=== PATIENT | male | born 1935 | race Caucasian/White ===

== ENCOUNTER 2017-10-04 09:47 | Emergency (ER) | payer MEDICARE ==
[2017-10-04] MEDS ORDERED: PREDNISONE 20 MG TABLET ONE (10:43)
== END 2017-10-04 10:55 | disposition home or self-care (01) ==
LOC: EDH 09:47
DX: M16.12 Unilateral primary osteoarthritis, left hip (principal); I10 Essential (primary) hypertension; E78.5 Hyperlipidemia, unspecified; Z87.891 Personal history of nicotine dependence
CPT/HCPCS: 73502

== ENCOUNTER 2019-12-06 11:56 | Emergency (ER) | payer MEDICARE ==
[2019-12-06] MEDS ORDERED: ORPHENADRINE CITRATE 30 MG/ML ML ONE (12:31)
== END 2019-12-06 13:19 | disposition home or self-care (01) ==
LOC: EDH 11:56
DX: M54.32 Sciatica, left side (principal); M25.552 Pain in left hip; E78.5 Hyperlipidemia, unspecified; I10 Essential (primary) hypertension
CPT/HCPCS: 96372; 99283; J2360

== ENCOUNTER 2020-03-04 01:32 | Observation (INO) | payer MEDICARE ==
[~2020-03-04] VITALS: Ht 160 cm; Wt 72.5 kg
[2020-03-04 02:01] LABS: BASOPHILS % (AUTO) 0.8 % (0.0-5.0); EOSINOPHILS % (AUTO) 6.9 % (0.0-8.0); HEMATOCRIT 42.4 % (42-54); LYMPHOCYTES % (AUTO) 35.8 % (21.0-51.0); MEAN CORPUSCULAR HEMOGLOBIN 31.1 pg (27.0-33.0); MEAN CORPUSCULAR HGB CONC 33.5 g/dL (32.0-36.0); MONOCYTES % (AUTO) 13.7 % (3.0-13.0); NEUTROPHILS % (AUTO) 42.6 % (40.0-77.0); PLATELET COUNT (AUTO) 186 K/uL (130-400); RED BLOOD CELL COUNT(AUTO) 4.56 MIL/uL (4.50-6.20); RED CELL DISTRIBUTION WIDTH 15.5 % (11.0-15.5); WHITE BLOOD COUNT (AUTO) 5.2 K/uL (4.8-10.8)
[2020-03-04] MEDS ORDERED: PANTOPRAZOLE 40 MG/VIAL ONE ×2 (02:06→09:58)
[2020-03-04] MEDS ORDERED: FAMOTIDINE/PF 20 MG/2 ML VIAL IV ONE (02:07)
[2020-03-04 02:12] LABS: CREATININE 0.9 mg/dL (0.5-1.5); POTASSIUM 3.7 mmol/L (3.5-5.1)
[2020-03-04 02:15] LABS: INR 0.9 (0.85-1.15); PARTIAL THROMBOPLASTIN TIME 25.2 SEC (26.3-35.5); PROTHROMBIN TIME 9.8 SEC (9.6-11.6)
[2020-03-04 02:16] LABS: ALBUMIN 3.5 g/dL (3.5-5.0); BILIRUBIN,TOTAL 0.2 mg/dL (0.2-1.0); TOTAL PROTEIN, SERUM 7.2 g/dL (6.0-8.3)
[2020-03-04] MEDS ORDERED: IOHEXOL-350 75 ML VIAL IV ONE (02:52)
[2020-03-04] MEDS: SODIUM CHLORIDE 0.9% 1000ML 1,000 ML IV SCH ×2 (03:39→18:18)
[2020-03-04] MEDS ORDERED: ACETAMINOPHEN 325 MG TAB PO PRN ×2 (03:45)
[2020-03-04] MEDS ORDERED: ONDANSETRON HCL 4 MG/2 ML VIAL IV PRN (03:45)
[2020-03-04 08:00] LABS: APPEARANCE,URINE Clear (CLEAR); BILIRUBIN,URINE Negative (NEGATIVE); COLOR,URINE Yellow (YELLOW); GLUCOSE, URINE (UA) Negative (NEGATIVE); KETONES,URINE Negative (NEGATIVE); LEUKOCYTE ESTERASE ,URINE Negative (NEGATIVE); NITRATE,URINE Negative (NEGATIVE); OCCULT BLOOD,URINE Negative (NEGATIVE); PROTEIN,URINE Negative (NEGATIVE); UROBILINOGEN,URINE 0.2 mg/dL (0.2-1.0)
[2020-03-04] MEDS ORDERED: FAMOTIDINE/PF 20 MG/2 ML VIAL IV SCH (09:00)
[2020-03-04] MEDS: PANTOPRAZOLE 40 MG/VIAL IVP SCH ×2 (09:59→20:59)
[2020-03-04 10:25] LABS: EOSINOPHILS % (AUTO) 6.6 % (0.0-8.0); HEMATOCRIT 39.4 % (42-54); LYMPHOCYTES % (AUTO) 28.7 % (21.0-51.0); MEAN CORPUSCULAR HEMOGLOBIN 30.8 pg (27.0-33.0); MEAN CORPUSCULAR HGB CONC 32.5 g/dL (32.0-36.0); MEAN CORPUSCULAR VOLUME 94.7 fL (79-99); NEUTROPHILS % (AUTO) 51.5 % (40.0-77.0); PLATELET COUNT (AUTO) 166 K/uL (130-400); RED BLOOD CELL COUNT(AUTO) 4.16 MIL/uL (4.50-6.20); RED CELL DISTRIBUTION WIDTH 15.7 % (11.0-15.5); WHITE BLOOD COUNT (AUTO) 4.1 K/uL (4.8-10.8)
[2020-03-04 16:25] VITALS: BP 160/66
--- NOTE | 2020-03-04 16:35 | NUR ---
RADHA NOTE/IA UNABLE TO MEET WITH PATIENT, NEXT OF KIN CALLED, FELIPA TURCIOS. PER DAUGHTER, PATIENT LIVES ALONE, IS INDEPENDENT WITH ADLS, NO USE OF PROVIDER SERVICES, HAS CANE, AND FEELS SAFE FOR PATIENT TO RETURN HOME WITH FRIEND, JOYCELYN FORDS. Addendum: 03/04/20 at 1636 by KATHERIN MONGE RN CM Amended: Links added.
[2020-03-04] MEDS ORDERED: HYDRALAZINE HCL 20 MG/ML VIAL IV PRN (16:45)
--- NOTE | 2020-03-04 17:30 | NUR ---
MD CONSULT SPOKE TO DR. CORBIN REGARDING PATIENT WITH ACTIVE GI BLEED. PER DR. CORBIN, PATIENT'S HEMOGLOBIN IS STABLE AT 13.7 AND DOES NOT NEED TO BE IN THE HOSPITAL. PATIENT NEEDS TO BE DISCHARGE RIGHT AWAY. DR. CORBIN STATED, " PATIENT WILL JUST CONTRACT COVID BY BEING IN THE HOSPITAL". PATIENT TO FOLLOW UP WITH HIM ON SATURDAY OR SATURDAY. DR. GUPTA NOTIFIED OF DR. CORBIN'S RESPONSE. PER DR. GUPTA, CONTINUE TO MONITOR PATIENT'S HEMOGLOBIN AND MY CONSIDER DISCHARGE TOMORROW.
--- NOTE | 2020-03-04 17:40 | NUR ---
NOTIFIED PATIENT REGARDING DR. CORBIN'S NOT PERFORMING ANY INTERVENTIONS AT THIS TIME AND WANTS PATIENT TO FOLLOW UP WITH HIM ON SATURDAY. PATIENT'S CONCERNED ABOUT STILL HAVING SMALL BLOODY STOOLS. PATIENT STATED, " I'M BLEEDING OUT AND YOU ALL ARE NOT DOING ANYTHING ABOUT IT". I REASSURED THE PATIENT THAT DR. GUPTA WOULD BE MONITORING HIS HEMOGLOBIN LEVELS CLOSELY AND HE WILL BE RECEIVING PROTONIX IV TWICE A DAY TO HELP WITH THE GI BLEED. PATIENT STATED WILL WAIT AND SEE WHAT HAPPENS TOMORROW.
[2020-03-04 19:40] VITALS: BP 154/62
[2020-03-04] MEDS ORDERED: AMLO10TA7 PO (19:42)
[2020-03-04] MEDS ORDERED: ASPI-1197 PO (19:42)
[2020-03-04] MEDS ORDERED: L.AC1CAP6 PO (19:42)
[2020-03-04] MEDS ORDERED: OLME1TAB82 PO (19:42)
--- NOTE | 2020-03-04 20:00 | NUR ---
assessment note awake, alert, ox3, sitting bedside chair, no sob, no c/o pain , at this time, ivf infusing well at this time, teach patient plan of care and expected outcome, patient verbalizes understanding via teach back
[2020-03-04 23:37] VITALS: BP 145/65
[2020-03-05 03:35] VITALS: BP 158/70
[2020-03-05 06:11] LABS: MEAN CORPUSCULAR HGB CONC 32.6 g/dL (32.0-36.0); MEAN CORPUSCULAR VOLUME 95.1 fL (79-99); RED BLOOD CELL COUNT(AUTO) 4.1 MIL/uL (4.50-6.20); RED CELL DISTRIBUTION WIDTH 15.4 % (11.0-15.5); WHITE BLOOD COUNT (AUTO) 4.5 K/uL (4.8-10.8)
[2020-03-05 06:34] LABS: CREATININE 0.9 mg/dL (0.5-1.5)
[2020-03-05] MEDS ORDERED: DEXTROSE 5%-WATER 1,000 ML IV SCH (07:00)
--- NOTE | 2020-03-05 07:45 | NUR ---
PATIENT VOICED IS VERY UPSET DUE TO NOTHING'S BEING DONE SINCE HE'S ARRIVED AT THE HOSPITAL. STATED, " I'M STILL HAVING BLOODY STOOLS AND NO DOCTOR HAS COME TO SEE ME OR DO ANYTHING ABOUT IT. " I NEED SOMEONE HIGH IN RANK TO COME AND TALK TO ME". PATIENT STATED, "I WANT DR. CORBIN'S TO COME SEE ME IN THE HOSPITAL AND DO SOMETHING ABOUT MY PROBLEM". I WILL NOT LEAVE THIS PLACE UNTIL THE BLEEDING HAS CLEARED UP.
--- NOTE | 2020-03-05 07:50 | NUR ---
SPOKE TO VENKAT MENDOZA (CHARGE NURSE) REGARDING PATIENT'S CONCERNS, STATED WILL NOTIFY TAPE RECORDING MACHINE OPERATOR.
[2020-03-05 08:08] VITALS: BP 178/75
--- NOTE | 2020-03-05 08:54 | NUR ---
RECEIVED CALL FROM DR. CORBIN, STATED PATIENT HAS NORMAL HEMOGLOBIN 12.7 THIS MORNING. STATED, " I TOLD YOU TO DISCHARGE THE PATIENT YESTERDAY AND HE WILL FOLLOW UP IN MY OFFICE ON SATURDAY". " ALL YOU ALL ARE DOING IS GOING TO CAUSE THIS PATIENT TO CONTRACT COVID, THIS PATIENT HAS NO REASON FOR BEING IN THE HOSPITAL.". " YOU SHOULD HAVE NEVER ADMITTED THIS PATIENT. " "SCOPING THE PATIENT WILL NOT STOP THE BLEEDING ANYWAY." " I WANT TO SPEAK TO THE PATIENT RIGHT NOW." THE TELEPHONE WAS TAKEN TO THE PATIENT BY VENKAT DYE (GI LAB) NURSE. CHARGE NURSE VENKAT MENDOZA PRESENT AT THIS TIME.
[2020-03-05] MEDS ORDERED: ASPIRIN 81MG TAB.CHEW PO SCH (09:00)
[2020-03-05] MEDS: L.acidoph & Paracasei,B.lactis (Probiotic) 1 EACH PO SCH (09:00)
[2020-03-05] MEDS: PANTOPRAZOLE 40 MG/VIAL IVP SCH ×2 (09:56→21:41)
[2020-03-05] MEDS: AMLODIPINE BESYLATE 5 MG TAB PO SCH (09:56)
[2020-03-05 11:51] VITALS: BP 136/63
[2020-03-05 16:35] VITALS: BP 159/79
[2020-03-05] MEDS ORDERED: PEG 3350/NA SULF,BICARB,CL/KCL 4000 ML SOLN PO SCH (17:00)
[2020-03-05 19:25] VITALS: BP 180/69
[2020-03-05 23:38] VITALS: BP 172/76
[2020-03-06] VITALS (15 sets, daily range): BP systolic 98–157; BP diastolic 49–75
[2020-03-06 05:20] LABS: EOSINOPHILS % (AUTO) 6.4 % (0.0-8.0); HEMATOCRIT 43.2 % (42-54); MEAN CORPUSCULAR HEMOGLOBIN 30.8 pg (27.0-33.0); MEAN CORPUSCULAR HGB CONC 32.9 g/dL (32.0-36.0); MEAN CORPUSCULAR VOLUME 93.7 fL (79-99); NEUTROPHILS % (AUTO) 50.4 % (40.0-77.0); PLATELET COUNT (AUTO) 194 K/uL (130-400); RED BLOOD CELL COUNT(AUTO) 4.61 MIL/uL (4.50-6.20); RED CELL DISTRIBUTION WIDTH 15.3 % (11.0-15.5); WHITE BLOOD COUNT (AUTO) 4.8 K/uL (4.8-10.8)
[2020-03-06 05:37] LABS: CREATININE 0.9 mg/dL (0.5-1.5); POTASSIUM 3.3 mmol/L (3.5-5.1)
[2020-03-06] MEDS ORDERED: POTASSIUM CHLORIDE 10MEQ/100ML 100 ML IV PRN (06:45)
[2020-03-06] MEDS ORDERED: LIDOCAINE HCL-MPF 1% 2ML VIAL IV PRN (06:45)
[2020-03-06] MEDS ORDERED: PROPOFOL 10 MG/ML 20ML VIAL IV ONE (06:50)
[2020-03-06] MEDS ORDERED: LIDOCAINE HCL 1% 20 ML VIAL ONE (06:50)
[2020-03-06] MEDS ORDERED: HYDR25SU38 RC (08:18)
[2020-03-06] MEDS: AMLODIPINE BESYLATE 5 MG TAB PO SCH (08:25)
[2020-03-06] MEDS: L.acidoph & Paracasei,B.lactis (Probiotic) 1 EACH PO SCH (09:00)
[2020-03-06] MEDS: PANTOPRAZOLE 40 MG/VIAL IVP SCH (09:00)
--- NOTE | 2020-03-06 11:30 | NUR ---
DISCHARGE PATIENT GIVEN DISCHARGE INSTRUCTIONS VIA TEACH BACK. 18G PIV TO LFA DISCONTINUE, TIP INTACT. E-RX SENT TO [facility] IN [place] FOR ANUSOL SUPP DAILY X 2 WEEKS. PATIENT TO FOLLOW UP WITH DR. GRAYSON AND DR. CORBIN IN 1 WEEK. PATIENT STABLE AT THIS TIME, NO CURRENT BLOODY STOOLS. PATIENT WHEELED TO [facility] FOR DISCHARGE BY AYUSH REDDY.
== END 2020-03-06 13:30 | disposition home or self-care (01) ==
LOC: EDH 01:32 → EDHIP 03:39 → 3BH 15:02
PROVIDERS: ADMIT Internal Medicine; ATTEND Internal Medicine
DX: U07.1 COVID-19 (principal); K92.1 Melena; E87.0 Hyperosmolality and hypernatremia; B96.89 Other specified bacterial agents as the cause of diseases classified elsewhere; K64.1 Second degree hemorrhoids; K57.30 Diverticulosis of large intestine without perforation or abscess without bleeding; I10 Essential (primary) hypertension; E78.5 Hyperlipidemia, unspecified
CPT/HCPCS: 36415 ×3; 45378; 71045; 74177; 80048 ×2; 80053; 81003; 82270; 83605; 83690; 84484; 85014; 85018; 85025 ×3; 85027; 85610; 85730; 86850; 86900; 86901; 87426; 93005; 96361 ×2; 96374; 96376; 99285; A4222; A4223; A4620; A4657; C9113 ×6; G0378 ×22; J2704; J3490; J7030; J7070; Q9967; U0003

== ENCOUNTER → 2020-04-14 | Outpatient (CLI) | payer MEDICARE ==
[~2020-04-14] MED LIST: AMLO10TA7 PO; ASPI-1197 PO; HYDR25SU38 RC; L.AC1CAP6 PO; OLME1TAB82 PO
== END | disposition home or self-care (01) ==
LOC: RAH 07:59
PROVIDERS: ATTEND Family Medicine Sports Medicine
DX: M51.27 Other intervertebral disc displacement, lumbosacral region (principal); M16.12 Unilateral primary osteoarthritis, left hip; M47.817 Spondylosis without myelopathy or radiculopathy, lumbosacral region; M48.061 Spinal stenosis, lumbar region without neurogenic claudication
CPT/HCPCS: 72148; 73721

== ENCOUNTER 2022-01-13 16:24 | Emergency (ER) | payer MEDICARE ==
[~2022-01-13] VITALS: Ht 180.3 cm; Wt 74.8 kg
[~2022-01-13 16:24] MED LIST changes: +AMLO-258 PO; -AMLO10TA7 PO; +OLME-7 PO; -OLME1TAB82 PO
[2022-01-13 17:20] VITALS: BP 115/58
[2022-01-13] MEDS ORDERED: 0.9%NACL 1000ML 1,000 ML IV ONE (17:30)
[2022-01-13 17:49] LABS: BASOPHILS % (AUTO) 0.3 % (0.0-5.0); HEMATOCRIT 45.9 % (42-54); MEAN CORPUSCULAR HEMOGLOBIN 30.3 pg (27.0-33.0); MEAN CORPUSCULAR HGB CONC 32.9 g/dL (32.0-36.0); MEAN CORPUSCULAR VOLUME 92.2 fL (79-99); MONOCYTES % (AUTO) 6.2 % (3.0-13.0); NEUTROPHILS % (AUTO) 75.3 % (40.0-77.0); PLATELET COUNT (AUTO) 186 K/uL (130-400); RED BLOOD CELL COUNT(AUTO) 4.98 MIL/uL (4.50-6.20); RED CELL DISTRIBUTION WIDTH 14.2 % (11.0-15.5)
[2022-01-13 17:51] LABS: APPEARANCE,URINE CLEAR (CLEAR); BILIRUBIN,URINE NEGATIVE (NEGATIVE); COLOR,URINE YELLOW (YELLOW); GLUCOSE, URINE (UA) NEGATIVE (NEGATIVE); KETONES,URINE 15 mg/dL (NEGATIVE); LEUKOCYTE ESTERASE ,URINE NEGATIVE (NEGATIVE); NITRATE,URINE NEGATIVE (NEGATIVE); OCCULT BLOOD,URINE NEGATIVE (NEGATIVE); PROTEIN,URINE NEGATIVE (NEGATIVE); UROBILINOGEN,URINE 0.2 mg/dL (0.2-1.0)
[2022-01-13 18:00] LABS: CREATININE 1.4 mg/dL (0.5-1.5); POTASSIUM 4.2 mmol/L (3.5-5.1)
[2022-01-13] MEDS ORDERED: MECLIZINE HCL 25 MG TABLET PO ONE (18:00)
[2022-01-13 18:05] LABS: ALBUMIN 3.5 g/dL (3.5-5.0); BILIRUBIN,TOTAL 0.4 mg/dL (0.2-1.0); TOTAL PROTEIN, SERUM 7.5 g/dL (6.0-8.3)
[2022-01-13] MEDS ORDERED: MECL-226 PO (18:48)
== END 2022-01-13 18:57 | disposition home or self-care (01) ==
LOC: EDH 16:24
DX: U07.1 COVID-19 (principal); R42 Dizziness and giddiness; R11.0 Nausea
CPT/HCPCS: 99285; 96360; 71045; 87635; 84484; 80053; 85025; 81003; 36415; 93005; C9803; J7030

== ENCOUNTER 2022-01-15 18:42 | Inpatient (IN) | payer MEDICARE ==
[2020-01-24] MEDS: ZOSYN 3.375GM +NS 50ML IV SCH (17:29)
[~2022-01-15] VITALS: Ht 180.3 cm; Wt 73.6 kg
[~2022-01-15 18:42] MED LIST changes: +MECL-226 PO
[2022-01-15 19:14] LABS: BASOPHILS % (AUTO) 0.1 % (0.0-5.0); EOSINOPHILS % (AUTO) 0.1 % (0.0-8.0); HEMATOCRIT 48.9 % (42-54); MEAN CORPUSCULAR HEMOGLOBIN 30.7 pg (27.0-33.0); MEAN CORPUSCULAR HGB CONC 33.7 g/dL (32.0-36.0); MEAN CORPUSCULAR VOLUME 91.1 fL (79-99); MONOCYTES % (AUTO) 3.9 % (3.0-13.0); NEUTROPHILS % (AUTO) 89.6 % (40.0-77.0); PLATELET COUNT (AUTO) 211 K/uL (130-400); RED BLOOD CELL COUNT(AUTO) 5.37 MIL/uL (4.50-6.20); RED CELL DISTRIBUTION WIDTH 14.1 % (11.0-15.5); WHITE BLOOD COUNT (AUTO) 13.4 K/uL (4.8-10.8)
[2022-01-15 19:33] LABS: ALBUMIN 3.8 g/dL (3.5-5.0); TOTAL PROTEIN, SERUM 7.8 g/dL (6.0-8.3)
[2022-01-15] MEDS ORDERED: IOHEXOL 350 MG/ML 100ML INFUS..BTL IV ONE (19:35)
[2022-01-15] MEDS ORDERED: ONDANSETRON 4MG INJ ONE (19:50)
[2022-01-15] MEDS ORDERED: ONDANSETRON 4MG INJ IVP ONE (20:00)
[2022-01-15] MEDS ORDERED: DiphenhydrAMINE HCL 50 MG/ML VIAL IV PRN (21:30)
[2022-01-15] MEDS ORDERED: ONDANSETRON 4MG INJ IV PRN (21:30)
[2022-01-15] MEDS ORDERED: ACETAMINOPHEN 325 MG TAB PO PRN ×2 (21:30)
[2022-01-15] MEDS ORDERED: ACETAMINOPHEN WITH CODEINE 1 TAB TAB PO PRN (21:30)
[2022-01-15] MEDS: MORPHINE 2 MG SYG IV PRN (21:45)
[2022-01-15] MEDS ORDERED: MORPHINE 2 MG SYG ONE (21:45)
[2022-01-15] MEDS: LACTATED RINGERS 1000ML 1,000 ML IV SCH (22:09)
[2022-01-15] MEDS: ZOSYN 3.375GM +NS 50ML IV SCH (22:09)
[2022-01-15] MEDS ORDERED: GLUC100019 PO (23:52)
[2022-01-15] MEDS ORDERED: FLAX100020 PO (23:52)
[2022-01-16] MEDS: MORPHINE 2 MG SYG IV PRN ×2 (00:44→04:59)
[2022-01-16] MEDS ORDERED: LORAZEPAM 2 MG/ML 1 ML VIAL IM PRN (01:00)
[2022-01-16] MEDS ORDERED: THIAMINE HCL 100 MG/ML 2ML VIAL ONE (02:01)
[2022-01-16] MEDS ORDERED: FOLIC ACID 5 MG/ML VIAL ONE (02:03)
[2022-01-16] MEDS: M.V.I. IV [ADULT] 10 ML, FOLIC ACID 1 MG, THIAMINE HCL 100 MG in 0.9%NACL 1000ML 1,000 ML IV SCH (02:34)
[2022-01-16 02:50] VITALS: BP 157/97
[2022-01-16] MEDS: ZOSYN 3.375GM +NS 50ML IV SCH ×3 (04:59→21:51)
[2022-01-16] MEDS ORDERED: OMEG-109 PO (05:16)
[2022-01-16] MEDS ORDERED: [UNRECOGNIZED DRUG - OTHER] PO (05:16)
[2022-01-16] MEDS ORDERED: cognitex PO (05:16)
[2022-01-16] MEDS ORDERED: [UNRECOGNIZED DRUG - OTHER] PO (05:16)
[2022-01-16] MEDS ORDERED: RESV50CA PO (05:16)
[2022-01-16] MEDS ORDERED: [UNRECOGNIZED DRUG - OTHER] PO (05:16)
[2022-01-16] MEDS ORDERED: CHOL125C7 PO (05:16)
[2022-01-16] MEDS ORDERED: PRED5TAB PO (05:16)
[2022-01-16] MEDS ORDERED: TURM1POW MC (05:16)
[2022-01-16 06:11] LABS: BASOPHILS % (AUTO) 0.1 % (0.0-5.0); HEMATOCRIT 55.4 % (42-54); LYMPHOCYTES % (AUTO) 5.1 % (21.0-51.0); MEAN CORPUSCULAR HEMOGLOBIN 30.6 pg (27.0-33.0); MEAN CORPUSCULAR HGB CONC 33.6 g/dL (32.0-36.0); MEAN CORPUSCULAR VOLUME 91.3 fL (79-99); MONOCYTES % (AUTO) 6.9 % (3.0-13.0); NEUTROPHILS % (AUTO) 87.4 % (40.0-77.0); PLATELET COUNT (AUTO) 240 K/uL (130-400); RED BLOOD CELL COUNT(AUTO) 6.07 MIL/uL (4.50-6.20); RED CELL DISTRIBUTION WIDTH 14.7 % (11.0-15.5); WHITE BLOOD COUNT (AUTO) 12.6 K/uL (4.8-10.8)
[2022-01-16 06:23] LABS: CREATININE 1.7 mg/dL (0.5-1.5); POTASSIUM 4.4 mmol/L (3.5-5.1)
[2022-01-16 08:00] VITALS: BP 122/72
[2022-01-16] MEDS: FAMOTIDINE 20MG VIAL IV SCH ×2 (08:19→21:50)
[2022-01-16] MEDS: AMLODIPINE 5 MG TAB PO SCH (09:00)
[2022-01-16] MEDS: METOPROLOL TARTRATE 25 MG TAB PO SCH ×2 (09:00→21:51)
[2022-01-16] MEDS: MECLIZINE HCL 12.5 MG TABLET PO SCH ×3 (09:00→21:51)
[2022-01-16] MEDS: ASPIRIN 81MG CHEW TAB PO SCH (09:00)
[2022-01-16 11:35] VITALS: BP 125/69
[2022-01-16] MEDS: LACTATED RINGERS 1000ML 1,000 ML IV SCH (11:48)
[2022-01-16 15:40] VITALS: BP 100/60
[2022-01-16 21:02] VITALS: BP 125/60
[2022-01-16 23:53] VITALS: BP 105/57
[2022-01-17] MEDS: LACTATED RINGERS 1000ML 1,000 ML IV SCH ×2 (02:06→17:22)
[2022-01-17 04:08] LABS: APPEARANCE,URINE CLEAR (CLEAR); BILIRUBIN,URINE NEGATIVE (NEGATIVE); COLOR,URINE YELLOW (YELLOW); GLUCOSE, URINE (UA) NEGATIVE (NEGATIVE); KETONES,URINE 5 mg/dL (NEGATIVE); LEUKOCYTE ESTERASE ,URINE NEGATIVE (NEGATIVE); NITRATE,URINE NEGATIVE (NEGATIVE); OCCULT BLOOD,URINE NEGATIVE (NEGATIVE); PROTEIN,URINE TRACE mg/dL (NEGATIVE); UROBILINOGEN,URINE 0.2 mg/dL (0.2-1.0)
[2022-01-17 04:53] VITALS: BP 123/81
[2022-01-17] MEDS: ZOSYN 3.375GM +NS 50ML IV SCH ×3 (05:16→20:20)
[2022-01-17 08:00] VITALS: BP 156/85
[2022-01-17] MEDS: M.V.I. IV [ADULT] 10 ML, FOLIC ACID 1 MG, THIAMINE HCL 100 MG in 0.9%NACL 1000ML 1,000 ML IV SCH ×2 (09:26→09:32)
[2022-01-17] MEDS: METOPROLOL TARTRATE 25 MG TAB PO SCH ×2 (09:27→20:20)
[2022-01-17] MEDS: ASPIRIN 81MG CHEW TAB PO SCH (09:27)
[2022-01-17] MEDS: FAMOTIDINE 20MG VIAL IV SCH ×2 (09:27→20:22)
[2022-01-17] MEDS: MECLIZINE HCL 12.5 MG TABLET PO SCH ×3 (09:28→20:20)
[2022-01-17] MEDS: AMLODIPINE 5 MG TAB PO SCH (09:28)
[2022-01-17 11:33] VITALS: BP 146/91
[2022-01-17] MEDS ORDERED: POTASSIUM CHLORIDE 10% ELIXIR 20 MEQ/15 ML UDCUP PO PRN (15:30)
[2022-01-17] MEDS ORDERED: KCL 20 MEQ ERTAB PO PRN (15:30)
[2022-01-17] MEDS ORDERED: POTASSIUM CHLORIDE 20MEQ/100ML 100 ML IV PRN (15:30)
[2022-01-17] MEDS ORDERED: LIDOCAINE HCL-MPF 1% 2ML VIAL IV PRN (15:30)
[2022-01-17 16:00] VITALS: BP 129/53
[2022-01-17 19:30] VITALS: BP 131/68
[2022-01-18] MEDS: LACTATED RINGERS 1000ML 1,000 ML IV SCH ×2 (04:39→18:25)
[2022-01-18] MEDS: ZOSYN 3.375GM +NS 50ML IV SCH ×3 (04:39→19:28)
[2022-01-18 06:13] VITALS: BP 132/86
[2022-01-18 08:00] VITALS: BP 131/68
[2022-01-18 08:06] LABS: BASOPHILS % (AUTO) 0.1 % (0.0-5.0); EOSINOPHILS % (AUTO) 0.1 % (0.0-8.0); HEMATOCRIT 41.9 % (42-54); LYMPHOCYTES % (AUTO) 3.6 % (21.0-51.0); MEAN CORPUSCULAR HEMOGLOBIN 30.8 pg (27.0-33.0); MEAN CORPUSCULAR HGB CONC 34.4 g/dL (32.0-36.0); MEAN CORPUSCULAR VOLUME 89.5 fL (79-99); MONOCYTES % (AUTO) 9.4 % (3.0-13.0); NEUTROPHILS % (AUTO) 86.4 % (40.0-77.0); PLATELET COUNT (AUTO) 203 K/uL (130-400); RED BLOOD CELL COUNT(AUTO) 4.68 MIL/uL (4.50-6.20); RED CELL DISTRIBUTION WIDTH 14.5 % (11.0-15.5); WHITE BLOOD COUNT (AUTO) 14.7 K/uL (4.8-10.8)
[2022-01-18 08:10] LABS: ALBUMIN 2.8 g/dL (3.5-5.0); CREATININE 4.8 mg/dL (0.5-1.5); MAGNESIUM 1.9 mg/dL (1.80-2.40); POTASSIUM 4.4 mmol/L (3.5-5.1); TOTAL PROTEIN, SERUM 6.5 g/dL (6.0-8.3)
[2022-01-18] MEDS: M.V.I. IV [ADULT] 10 ML, FOLIC ACID 1 MG, THIAMINE HCL 100 MG in 0.9%NACL 1000ML 1,000 ML IV SCH (09:00)
[2022-01-18] MEDS: FAMOTIDINE 20MG VIAL IV SCH ×2 (09:00→19:28)
[2022-01-18] MEDS: METOPROLOL TARTRATE 25 MG TAB PO SCH ×2 (09:01→19:28)
[2022-01-18] MEDS: ASPIRIN 81MG CHEW TAB PO SCH (09:01)
[2022-01-18] MEDS: MECLIZINE HCL 12.5 MG TABLET PO SCH ×3 (09:01→19:29)
[2022-01-18] MEDS: AMLODIPINE 5 MG TAB PO SCH (09:01)
[2022-01-18 11:23] VITALS: BP 144/79
[2022-01-18] MEDS ORDERED: TAMSULOSIN HCL 0.4 MG CAP.ER.24H PO SCH (12:00)
[2022-01-18] MEDS ORDERED: 0.9%NACL 1000ML 1,000 ML IV ONE (14:30)
[2022-01-18 14:53] LABS: BILIRUBIN,URINE Negative (NEGATIVE); COLOR,URINE Yellow (YELLOW); GLUCOSE, URINE (UA) Negative (NEGATIVE); KETONES,URINE Trace mg/dL (NEGATIVE); LEUKOCYTE ESTERASE ,URINE Negative (NEGATIVE); NITRATE,URINE Negative (NEGATIVE); OCCULT BLOOD,URINE Moderate (NEGATIVE); PROTEIN,URINE POS 2+ mg/dL (NEGATIVE); UROBILINOGEN,URINE 0.2 mg/dL (0.2-1.0)
[2022-01-18 15:01] LABS: APPEARANCE,URINE CLOUDY (CLEAR)
[2022-01-18 15:06] LABS: BACTERIA,URINE Few /HPF (None Seen); SQUAMOUS EPITHELIAL CELL,UR Few /HPF (0-2); WBC,URINE 0-1 /HPF (0-1)
[2022-01-18 15:07] LABS: AMORPHOUS SEDIMENT,UR Few /LPF (None Seen)
[2022-01-18 16:00] VITALS: BP 137/81
[2022-01-19] VITALS: BP 123/63
[2022-01-19 04:00] VITALS: BP 130/71
[2022-01-19] MEDS: ZOSYN 3.375GM +NS 50ML IV SCH ×3 (04:29→20:19)
[2022-01-19 05:06] LABS: HEMATOCRIT 38.8 % (42-54); MEAN CORPUSCULAR HEMOGLOBIN 30.3 pg (27.0-33.0); MEAN CORPUSCULAR HGB CONC 33.8 g/dL (32.0-36.0); MEAN CORPUSCULAR VOLUME 89.6 fL (79-99); RED BLOOD CELL COUNT(AUTO) 4.33 MIL/uL (4.50-6.20); RED CELL DISTRIBUTION WIDTH 14.4 % (11.0-15.5); WHITE BLOOD COUNT (AUTO) 9.4 K/uL (4.8-10.8)
[2022-01-19 05:22] LABS: ALBUMIN 2.6 g/dL (3.5-5.0); CREATININE 3.9 mg/dL (0.5-1.5); MAGNESIUM 2.1 mg/dL (1.80-2.40); POTASSIUM 3.5 mmol/L (3.5-5.1); TOTAL PROTEIN, SERUM 6.1 g/dL (6.0-8.3); URIC ACID 8.9 mg/dL (2.6-7.2)
[2022-01-19 08:43] VITALS: BP 134/75
[2022-01-19] MEDS: TAMSULOSIN HCL 0.4 MG CAP.ER.24H PO SCH (10:15)
[2022-01-19] MEDS: METOPROLOL TARTRATE 25 MG TAB PO SCH ×2 (10:15→20:19)
[2022-01-19] MEDS: FAMOTIDINE 20MG VIAL IV SCH ×2 (10:15→20:20)
[2022-01-19] MEDS: Vitamin B Complex/Vit C/Folic Acid PO SCH (10:15)
[2022-01-19] MEDS: AMLODIPINE 5 MG TAB PO SCH (10:17)
[2022-01-19] MEDS: MECLIZINE HCL 12.5 MG TABLET PO SCH ×3 (10:18→20:20)
[2022-01-19] MEDS: ASPIRIN 81MG CHEW TAB PO SCH (10:19)
[2022-01-19] MEDS: LACTATED RINGERS 1000ML 1,000 ML IV SCH (10:58)
[2022-01-19 11:30] VITALS: BP 139/83
[2022-01-19 16:06] LABS: INR 0.99 (0.85-1.15); PROTHROMBIN TIME 10.8 SEC (9.6-11.6)
[2022-01-19 16:08] LABS: PARTIAL THROMBOPLASTIN TIME 24.7 SEC (26.3-35.5)
[2022-01-19 16:32] VITALS: BP 160/98
[2022-01-19 20:00] VITALS: BP 144/86
[2022-01-19] MEDS ORDERED: M.V.I. IV [ADULT] 10 ML, MULTITRACE-4 ADULT 10ML VIAL 3 ML in CLINIMIX-E 5%AA /D15%W 2... IV ONE (20:00)
[2022-01-20] VITALS (8 sets, daily range): BP systolic 119–146; BP diastolic 54–85
[2022-01-20] MEDS: LACTATED RINGERS 1000ML 1,000 ML IV SCH ×2 (01:36→15:54)
[2022-01-20] MEDS: ZOSYN 3.375GM +NS 50ML IV SCH ×3 (04:31→22:34)
[2022-01-20 05:50] LABS: BASOPHILS % (AUTO) 0.1 % (0.0-5.0); EOSINOPHILS % (AUTO) 2.9 % (0.0-8.0); HEMATOCRIT 37.5 % (42-54); LYMPHOCYTES % (AUTO) 5.2 % (21.0-51.0); MEAN CORPUSCULAR HEMOGLOBIN 30.5 pg (27.0-33.0); MEAN CORPUSCULAR HGB CONC 33.9 g/dL (32.0-36.0); MEAN CORPUSCULAR VOLUME 90.1 fL (79-99); NEUTROPHILS % (AUTO) 81.4 % (40.0-77.0); PLATELET COUNT (AUTO) 163 K/uL (130-400); RED BLOOD CELL COUNT(AUTO) 4.16 MIL/uL (4.50-6.20); RED CELL DISTRIBUTION WIDTH 14.2 % (11.0-15.5); WHITE BLOOD COUNT (AUTO) 8.5 K/uL (4.8-10.8)
[2022-01-20 06:00] LABS: CREATININE 2.2 mg/dL (0.5-1.5); MAGNESIUM 2.3 mg/dL (1.80-2.40); PHOSPHORUS 3.6 mg/dL (2.5-4.9); POTASSIUM 3.1 mmol/L (3.5-5.1)
[2022-01-20] MEDS: METOPROLOL TARTRATE 25 MG TAB PO SCH ×2 (10:09→22:35)
[2022-01-20] MEDS: FAMOTIDINE 20MG VIAL IV SCH ×2 (10:09→22:35)
[2022-01-20] MEDS: TAMSULOSIN HCL 0.4 MG CAP.ER.24H PO SCH (10:09)
[2022-01-20] MEDS: Vitamin B Complex/Vit C/Folic Acid PO SCH (10:09)
[2022-01-20] MEDS: ASPIRIN 81MG CHEW TAB PO SCH (10:11)
[2022-01-20] MEDS: AMLODIPINE 5 MG TAB PO SCH (10:12)
[2022-01-20] MEDS: MECLIZINE HCL 12.5 MG TABLET PO SCH ×3 (10:12→22:36)
[2022-01-20] MEDS ORDERED: M.V.I. IV [ADULT] 10 ML, MULTITRACE-4 ADULT 10ML VIAL 3 ML in CLINIMIX-E 5%AA /D15%W 2... IV ONE (20:00)
[2022-01-21] VITALS: BP 130/79
[2022-01-21 04:00] VITALS: BP_SYST 130; BP_SYST 144; BP_DIAS 79; BP_DIAS 80
[2022-01-21 05:26] LABS: BASOPHILS % (AUTO) 0.1 % (0.0-5.0); EOSINOPHILS % (AUTO) 3.8 % (0.0-8.0); HEMATOCRIT 37.9 % (42-54); LYMPHOCYTES % (AUTO) 6.3 % (21.0-51.0); MEAN CORPUSCULAR HEMOGLOBIN 30.4 pg (27.0-33.0); MEAN CORPUSCULAR HGB CONC 33.2 g/dL (32.0-36.0); MEAN CORPUSCULAR VOLUME 91.3 fL (79-99); MONOCYTES % (AUTO) 11.1 % (3.0-13.0); NEUTROPHILS % (AUTO) 78.3 % (40.0-77.0); PLATELET COUNT (AUTO) 158 K/uL (130-400); RED BLOOD CELL COUNT(AUTO) 4.15 MIL/uL (4.50-6.20); RED CELL DISTRIBUTION WIDTH 14.1 % (11.0-15.5); WHITE BLOOD COUNT (AUTO) 9.7 K/uL (4.8-10.8)
[2022-01-21 06:03] LABS: ALANINE AMINOTRANSFERASE 22 U/L (12-78); ALBUMIN 2.6 g/dL (3.5-5.0); ASPARTATE AMINOTRANSFERASE 20 U/L (10-37); CARBON DIOXIDE 30 mmol/L (21-32); CHLORIDE 111 mmol/L (101-111); CREATININE 1.4 mg/dL (0.5-1.5); GLOMERULAR FILTR. RATE CALC 51 mL/min (>60); GLUCOSE,RANDOM 120 mg/dL (70-105); POTASSIUM 3.1 mmol/L (3.5-5.1); SODIUM SERUM 150 mmol/L (136-145); TOTAL PROTEIN, SERUM 6.4 g/dL (6.0-8.3); UREA NITROGEN, BLOOD 42 mg/dL (7-18)
[2022-01-21] MEDS: ZOSYN 3.375GM +NS 50ML IV SCH ×3 (06:29→21:15)
[2022-01-21 08:00] VITALS: BP 136/74
[2022-01-21] MEDS: ASPIRIN 81MG CHEW TAB PO SCH (09:59)
[2022-01-21] MEDS: MECLIZINE HCL 12.5 MG TABLET PO SCH ×3 (10:00→21:16)
[2022-01-21] MEDS: TAMSULOSIN HCL 0.4 MG CAP.ER.24H PO SCH (10:00)
[2022-01-21] MEDS: AMLODIPINE 5 MG TAB PO SCH (10:00)
[2022-01-21] MEDS: Vitamin B Complex/Vit C/Folic Acid PO SCH (10:00)
[2022-01-21] MEDS: FAMOTIDINE 20MG VIAL IV SCH ×2 (10:00→21:15)
[2022-01-21] MEDS: METOPROLOL TARTRATE 25 MG TAB PO SCH ×2 (10:00→21:15)
[2022-01-21 16:00] VITALS: BP 110/68
[2022-01-21 19:57] VITALS: BP 136/85
[2022-01-21 23:33] VITALS: BP 144/86
[2022-01-22 03:46] VITALS: BP 154/82
[2022-01-22 04:17] LABS: BASOPHILS % (AUTO) 0.1 % (0.0-5.0); EOSINOPHILS % (AUTO) 3.4 % (0.0-8.0); HEMATOCRIT 42.5 % (42-54); LYMPHOCYTES % (AUTO) 9.3 % (21.0-51.0); MEAN CORPUSCULAR HEMOGLOBIN 29.9 pg (27.0-33.0); MEAN CORPUSCULAR HGB CONC 32.7 g/dL (32.0-36.0); MEAN CORPUSCULAR VOLUME 91.4 fL (79-99); NEUTROPHILS % (AUTO) 76.8 % (40.0-77.0); PLATELET COUNT (AUTO) 189 K/uL (130-400); RED BLOOD CELL COUNT(AUTO) 4.65 MIL/uL (4.50-6.20); RED CELL DISTRIBUTION WIDTH 14.1 % (11.0-15.5); WHITE BLOOD COUNT (AUTO) 11.6 K/uL (4.8-10.8)
[2022-01-22 04:34] LABS: ALANINE AMINOTRANSFERASE 23 U/L (12-78); ALBUMIN 2.6 g/dL (3.5-5.0); ASPARTATE AMINOTRANSFERASE 19 U/L (10-37); CARBON DIOXIDE 29 mmol/L (21-32); CHLORIDE 107 mmol/L (101-111); CREATININE 1.3 mg/dL (0.5-1.5); GLOMERULAR FILTR. RATE CALC 56 mL/min (>60); GLUCOSE,RANDOM 118 mg/dL (70-105); SODIUM SERUM 147 mmol/L (136-145); TOTAL PROTEIN, SERUM 6.8 g/dL (6.0-8.3); UREA NITROGEN, BLOOD 29 mg/dL (7-18)
[2022-01-22] MEDS: ZOSYN 3.375GM +NS 50ML IV SCH ×3 (05:04→22:05)
[2022-01-22 08:00] VITALS: BP 129/72
[2022-01-22] MEDS: Vitamin B Complex/Vit C/Folic Acid PO SCH (08:55)
[2022-01-22] MEDS: ASPIRIN 81MG CHEW TAB PO SCH (08:55)
[2022-01-22] MEDS: FAMOTIDINE 20MG VIAL IV SCH ×2 (08:55→22:05)
[2022-01-22] MEDS: METOPROLOL TARTRATE 25 MG TAB PO SCH ×2 (08:55→22:05)
[2022-01-22] MEDS: AMLODIPINE 5 MG TAB PO SCH (08:55)
[2022-01-22] MEDS: TAMSULOSIN HCL 0.4 MG CAP.ER.24H PO SCH (08:55)
[2022-01-22] MEDS: MECLIZINE HCL 12.5 MG TABLET PO SCH ×3 (08:56→22:06)
[2022-01-22] MEDS: FAT EMULSIONS 20% 250ML IV SCH (08:57)
[2022-01-22 11:43] VITALS: BP 136/71
[2022-01-22 16:00] VITALS: BP 134/76
[2022-01-22 20:00] VITALS: BP 132/72
[2022-01-23] VITALS (40 sets, daily range): BP systolic 71–139; BP diastolic 40–79
[2022-01-23 04:59] LABS: BASOPHILS % (AUTO) 0.4 % (0.0-5.0); EOSINOPHILS % (AUTO) 6.4 % (0.0-8.0); HEMATOCRIT 42.2 % (42-54); LYMPHOCYTES % (AUTO) 8.3 % (21.0-51.0); MEAN CORPUSCULAR HEMOGLOBIN 30.4 pg (27.0-33.0); MEAN CORPUSCULAR HGB CONC 32.9 g/dL (32.0-36.0); MEAN CORPUSCULAR VOLUME 92.3 fL (79-99); MONOCYTES % (AUTO) 9.6 % (3.0-13.0); NEUTROPHILS % (AUTO) 74.8 % (40.0-77.0); PLATELET COUNT (AUTO) 189 K/uL (130-400); RED BLOOD CELL COUNT(AUTO) 4.57 MIL/uL (4.50-6.20); RED CELL DISTRIBUTION WIDTH 14.1 % (11.0-15.5)
[2022-01-23 05:10] LABS: CREATININE 1.3 mg/dL (0.5-1.5); POTASSIUM 3.2 mmol/L (3.5-5.1)
[2022-01-23] MEDS: ZOSYN 3.375GM +NS 50ML IV SCH ×2 (05:11→20:00)
[2022-01-23 05:22] LABS: INR 1.05 (0.85-1.15); PROTHROMBIN TIME 11.4 SEC (9.6-11.6)
[2022-01-23 05:24] LABS: PARTIAL THROMBOPLASTIN TIME 25.2 SEC (26.3-35.5)
[2022-01-23] MEDS: TAMSULOSIN HCL 0.4 MG CAP.ER.24H PO SCH (09:04)
[2022-01-23] MEDS: Vitamin B Complex/Vit C/Folic Acid PO SCH (09:04)
[2022-01-23] MEDS: FAMOTIDINE 20MG VIAL IV SCH ×2 (09:04→21:00)
[2022-01-23] MEDS: AMLODIPINE 5 MG TAB PO SCH (09:05)
[2022-01-23] MEDS: ASPIRIN 81MG CHEW TAB PO SCH (09:05)
[2022-01-23] MEDS: MECLIZINE HCL 12.5 MG TABLET PO SCH ×3 (09:05→21:00)
[2022-01-23] MEDS: METOPROLOL TARTRATE 25 MG TAB PO SCH ×2 (09:05→21:00)
[2022-01-23 13:00] LABS: CHOLESTEROL 112 mg/dL (<200); HDL CHOLESTEROL 38 mg/dL (29-71); LDL DIRECT 60 mg/dL (0-99); TRIGLYCERIDES 64 mg/dL (30-200)
[2022-01-23] MEDS ORDERED: CEFAZOLIN SODIUM 1 GM VIAL ONE (15:44)
[2022-01-23] MEDS ORDERED: SUCCINYLCHOLINE CHLORIDE 20 MG/ML 10 ML VIAL ONE (16:00)
[2022-01-23] MEDS ORDERED: ROCURONIUM 10MG/1ML SYR 10 MG/ML ML ONE ×2 (16:01→17:10)
[2022-01-23] MEDS ORDERED: ONDANSETRON 4MG INJ ONE (16:01)
[2022-01-23] MEDS ORDERED: PROPOFOL 10 MG/ML 20ML VIAL IV ONE (16:01)
[2022-01-23] MEDS ORDERED: FENTANYL CITRATE PF 50 MCG/1 ML 5ML AMP IV ONE (16:02)
[2022-01-23] MEDS ORDERED: MIDAZOLAM HCL 1 MG/ML 2ML VIAL ONE (16:03)
[2022-01-23] MEDS ORDERED: EPHEDRINE SULFATE 50 MG/ML AMPULE ONE (16:53)
[2022-01-23] MEDS ORDERED: PHENYLEPHRINE HCL 10 MG/ML 1ML VIAL IV ONE ×5 (16:56→21:59)
[2022-01-23] MEDS ORDERED: ALBUMIN (HUMAN) 5% 250 ML IV ONE ×2 (17:19→20:43)
[2022-01-23] MEDS ORDERED: ZOSYN 3.375GM+NS 50ML 50 ML ONE (17:24)
[2022-01-23 18:05] LABS: ABG HCO3 27.4 mmol/L (21.0-28.0); ABG OXYGEN SATURATION 99.6 % (95.0-99.0); ABG PCO2 37 mmHg (35-48)
[2022-01-23] MEDS ORDERED: NEOSTIGMINE 5MG/5ML SYR IV ONE (18:35)
[2022-01-23] MEDS ORDERED: GLYCOPYRROLATE 1 MG/5 ML SYRINGE ONE (18:35)
[2022-01-23] MEDS ORDERED: ROPIVACAINE 0.5% 5MG/ML 30ML IJ ONE (18:39)
[2022-01-23] MEDS ORDERED: KETOROLAC 15MG/ML VIAL (15MG/ML) ONE (20:26)
[2022-01-23 21:54] LABS: ABG HCO3 23.5 mmol/L (21.0-28.0); ABG OXYGEN SATURATION 97.1 % (95.0-99.0); ABG PCO2 39 mmHg (35-48)
[2022-01-23] MEDS ORDERED: NOREPINEPHRINE BITARTRATE 1 MG/1 ML ML IV ONE (22:15)
[2022-01-23] MEDS ORDERED: NOREPINEPHRIN 4MG/NS 250ML 250 ML IV ONE (23:18)
[2022-01-23] MEDS ORDERED: 0.9%NACL 1000ML 1,000 ML IV ONE (23:28)
[2022-01-24] VITALS (102 sets, daily range): BP systolic 59–179; BP diastolic 31–99
[2022-01-24] MEDS ORDERED: PHENYLEPHRINE HCL 10 MG in 0.9% NACL 250ML 250 ML IV PRN (01:30)
[2022-01-24] MEDS ORDERED: 0.9%NACL 1000ML 1,000 ML IV SCH (01:30)
[2022-01-24] MEDS ORDERED: METOPROLOL TARTRATE 1 MG/ML 5ML VIAL IV ONE (01:30)
[2022-01-24] MEDS ORDERED: PHENYLEPHRINE HCL 10 MG/ML 1ML VIAL IV ONE (01:59)
[2022-01-24 02:06] LABS: HEMATOCRIT 30.9 % (42-54); MEAN CORPUSCULAR HEMOGLOBIN 30.9 pg (27.0-33.0); MEAN CORPUSCULAR HGB CONC 32.4 g/dL (32.0-36.0); MEAN CORPUSCULAR VOLUME 95.4 fL (79-99); RED BLOOD CELL COUNT(AUTO) 3.24 MIL/uL (4.50-6.20); RED CELL DISTRIBUTION WIDTH 14.1 % (11.0-15.5); WHITE BLOOD COUNT (AUTO) 17.2 K/uL (4.8-10.8)
[2022-01-24 02:19] LABS: CREATININE 2.1 mg/dL (0.5-1.5); MAGNESIUM 1.6 mg/dL (1.80-2.40); PHOSPHORUS 5.4 mg/dL (2.5-4.9); POTASSIUM 3.5 mmol/L (3.5-5.1)
[2022-01-24] MEDS ORDERED: PHENYLEPHRINE HCL 10 MG/ML 5ML VIAL IV ONE (03:18)
[2022-01-24] MEDS: 1/2 NS 1000ML 1,000 ML IV SCH ×3 (03:41→14:21)
[2022-01-24] MEDS: ZOSYN 3.375GM +NS 50ML IV SCH ×3 (03:41→21:36)
[2022-01-24] MEDS: MAGNESIUM 2GM PREMIX 50ML 50 ML IV PRN (04:54)
[2022-01-24] MEDS: INSULIN HUMULIN R 100 UNIT/ML 3ML SQ SCH ×3 (06:13→16:41)
[2022-01-24] MEDS: NOREPINEPHRIN 4MG/NS 250ML 250 ML IV SCH ×2 (07:21→18:20)
[2022-01-24] MEDS: METOPROLOL TARTRATE 1 MG/ML 5ML VIAL IV SCH ×3 (08:00→19:52)
[2022-01-24 08:09] LABS: HEMATOCRIT 29.7 % (42-54)
[2022-01-24] MEDS: PHENYLEPHRINE HCL 50 MG in 0.9% NACL 250ML 250 ML IV PRN ×2 (08:33→11:15)
[2022-01-24] MEDS: ASPIRIN 81MG CHEW TAB PO SCH (09:00)
[2022-01-24] MEDS: Vitamin B Complex/Vit C/Folic Acid PO SCH (09:00)
[2022-01-24] MEDS: TAMSULOSIN HCL 0.4 MG CAP.ER.24H PO SCH (09:00)
[2022-01-24] MEDS: MECLIZINE HCL 12.5 MG TABLET PO SCH ×3 (09:00→21:36)
[2022-01-24] MEDS: AMLODIPINE 5 MG TAB PO SCH (09:00)
[2022-01-24] MEDS: FAT EMULSIONS 20% 250ML IV SCH (09:22)
[2022-01-24] MEDS ORDERED: ALBUMIN (HUMAN) 5% 250 ML IV SCH (09:30)
[2022-01-24] MEDS ORDERED: KETOROLAC 15MG/ML VIAL (15MG/ML) IV PRN (09:30)
[2022-01-24] MEDS ORDERED: M.V.I. IV [ADULT] 10 ML, MULTITRACE-4 ADULT 10ML VIAL 3 ML in CLINIMIX-E 5%AA /D15%W 2... IV SCH (10:00)
[2022-01-24] MEDS ORDERED: 0.9%NACL 1000ML 1,000 ML IV ONE ×2 (10:30→15:51)
[2022-01-24] MEDS: FAMOTIDINE 20MG VIAL IV SCH ×2 (10:34→21:36)
[2022-01-24] MEDS: METOPROLOL TARTRATE 25 MG TAB PO SCH ×2 (11:17→21:36)
[2022-01-24 15:27] LABS: HEMATOCRIT 19.3 % (42-54)
[2022-01-25] VITALS (26 sets, daily range): BP systolic 94–154; BP diastolic 46–72
[2022-01-25] MEDS: METOPROLOL TARTRATE 1 MG/ML 5ML VIAL IV SCH ×2 (02:00→07:31)
[2022-01-25] MEDS: ZOSYN 3.375GM +NS 50ML IV SCH ×3 (03:29→21:00)
[2022-01-25] MEDS: HYDROMORPHONE 0.5 MG SYG (0.5MG/0.5ML) IVP PRN ×3 (03:30→14:33)
[2022-01-25] MEDS: 1/2 NS 1000ML 1,000 ML IV SCH ×2 (04:02→21:02)
[2022-01-25 04:37] LABS: HEMATOCRIT 26.5 % (42-54); MEAN CORPUSCULAR HEMOGLOBIN 30.3 pg (27.0-33.0); MEAN CORPUSCULAR VOLUME 89.2 fL (79-99); RED BLOOD CELL COUNT(AUTO) 2.97 MIL/uL (4.50-6.20); RED CELL DISTRIBUTION WIDTH 15.6 % (11.0-15.5); WHITE BLOOD COUNT (AUTO) 12.3 K/uL (4.8-10.8)
[2022-01-25] MEDS: INSULIN HUMULIN R 100 UNIT/ML 3ML SQ SCH ×4 (05:01→15:44)
[2022-01-25 08:03] LABS: CREATININE 3.3 mg/dL (0.5-1.5); MAGNESIUM 1.9 mg/dL (1.80-2.40); PHOSPHORUS 3.7 mg/dL (2.5-4.9); POTASSIUM 3.5 mmol/L (3.5-5.1)
[2022-01-25] MEDS: MECLIZINE HCL 12.5 MG TABLET PO SCH (08:46)
[2022-01-25] MEDS: Vitamin B Complex/Vit C/Folic Acid PO SCH (08:47)
[2022-01-25] MEDS: TAMSULOSIN HCL 0.4 MG CAP.ER.24H PO SCH (08:47)
[2022-01-25] MEDS: ASPIRIN 81MG CHEW TAB PO SCH (08:47)
[2022-01-25] MEDS: AMLODIPINE 5 MG TAB PO SCH (08:47)
[2022-01-25] MEDS: METOPROLOL TARTRATE 25 MG TAB PO SCH (08:47)
[2022-01-25] MEDS: FAMOTIDINE 20MG VIAL IV SCH ×2 (08:56→21:00)
[2022-01-25] MEDS ORDERED: METOPROLOL TARTRATE 1 MG/ML 5ML VIAL IV PRN (11:30)
[2022-01-25] MEDS: M.V.I. IV [ADULT] 10 ML, MULTITRACE-4 ADULT 10ML VIAL 3 ML in CLINIMIX-E 5%AA /D15%W 2... IV SCH (12:15)
[2022-01-25] MEDS: MAGNESIUM 2GM PREMIX 50ML 50 ML IV PRN (21:01)
[2022-01-26] VITALS (7 sets, daily range): BP systolic 135–159; BP diastolic 72–84
[2022-01-26] MEDS: ZOSYN 3.375GM +NS 50ML IV SCH ×3 (04:54→22:27)
[2022-01-26 05:03] LABS: HEMATOCRIT 23.2 % (42-54); MEAN CORPUSCULAR HEMOGLOBIN 30.6 pg (27.0-33.0); MEAN CORPUSCULAR HGB CONC 34.9 g/dL (32.0-36.0); MEAN CORPUSCULAR VOLUME 87.5 fL (79-99); PLATELET COUNT (AUTO) 142 K/uL (130-400); RED BLOOD CELL COUNT(AUTO) 2.65 MIL/uL (4.50-6.20); RED CELL DISTRIBUTION WIDTH 15.9 % (11.0-15.5); WHITE BLOOD COUNT (AUTO) 15.4 K/uL (4.8-10.8)
[2022-01-26 05:20] LABS: ALBUMIN 1.8 g/dL (3.5-5.0); CREATININE 2.5 mg/dL (0.5-1.5); MAGNESIUM 2.3 mg/dL (1.80-2.40); PHOSPHORUS 3.2 mg/dL (2.5-4.9); POTASSIUM 3.2 mmol/L (3.5-5.1); TOTAL PROTEIN, SERUM 5.1 g/dL (6.0-8.3)
[2022-01-26] MEDS: INSULIN HUMULIN R 100 UNIT/ML 3ML SQ SCH ×5 (05:24→23:16)
[2022-01-26 05:45] LABS: BASOPHILS % (MANUAL) 1 % (0-2); EOSINOPHILS % (MANUAL) 2 % (1-6); LYMPHOCYTES % (MANUAL) 5 % (22-44); MAN.DIFF COMMENT-IMPRESSION MANUAL DIFFERENTIAL; PLATELET MORPHOLOGY COMMENT SLIGHTLY DECREASED; SEGMENTED NEUTROPHILS % 92 % (40-70)
[2022-01-26] MEDS: FAT EMULSIONS 20% 250ML IV SCH (10:00)
[2022-01-26] MEDS: M.V.I. IV [ADULT] 10 ML, MULTITRACE-4 ADULT 10ML VIAL 3 ML in CLINIMIX-E 5%AA /D15%W 2... IV SCH (12:00)
[2022-01-26] MEDS: FAMOTIDINE 20MG VIAL IV SCH ×2 (12:16→22:27)
[2022-01-26] MEDS: 1/2 NS 1000ML 1,000 ML IV SCH (13:42)
== END 2022-01-26 23:20 | DRG 329 ==
LOC: EDH 18:42 → INTOOBSV 21:29 → EDHIP 21:29 → OBSVTOIN 21:29 → 4CH 01-16 02:44 → 2CH 01-24 00:08 → 4CH 01-25 16:25
PROVIDERS: ADMIT Hospitalist; ATTEND Hospitalist
PROC: 0D9670Z Drainage of Stomach with Drainage Device, Via Natural or Artificial Opening (ICD-10-PCS; 2022-01-16)
PROC: 30233N1 Transfusion of Nonautologous Red Blood Cells into Peripheral Vein, Percutaneous Approach (ICD-10-PCS; 2022-01-23)
PROC: 0DB80ZZ Excision of Small Intestine, Open Approach (ICD-10-PCS; principal; 2022-01-23 16:40)
PROC: 0DNB0ZZ Release Ileum, Open Approach (ICD-10-PCS; 2022-01-23 16:40)
PROC: 0DBU0ZZ Excision of Omentum, Open Approach (ICD-10-PCS; 2022-01-23 16:40)
PROC: 0DNW0ZZ Release Peritoneum, Open Approach (ICD-10-PCS; 2022-01-23 16:40)
PROC: 3E0M05Z Introduction of Adhesion Barrier into Peritoneal Cavity, Open Approach (ICD-10-PCS; 2022-01-23 16:40)
DX: K56.50 Intestinal adhesions [bands], unspecified as to partial versus complete obstruction (principal); E43 Unspecified severe protein-calorie malnutrition; U07.1 COVID-19; J12.82 Pneumonia due to coronavirus disease 2019; N17.9 Acute kidney failure, unspecified; E87.0 Hyperosmolality and hypernatremia; D72.829 Elevated white blood cell count, unspecified; F10.10 Alcohol abuse, uncomplicated; I10 Essential (primary) hypertension; D64.9 Anemia, unspecified; F03.90 Unspecified dementia, unspecified severity, without behavioral disturbance, psychotic disturbance, mood disturbance, and anxiety; Z66 Do not resuscitate; Z80.8 Family history of malignant neoplasm of other organs or systems; M19.90 Unspecified osteoarthritis, unspecified site; R00.0 Tachycardia, unspecified; Z68.22 Body mass index [BMI] 22.0-22.9, adult; I95.9 Hypotension, unspecified
CPT/HCPCS: 36415; 36600; 71045; 74018; 74177; 74250; 76770; 80048; 80053; 80061; 81001; 81003; 82435; 82550; 82570; 82803; 82947; 82948; 83605; 83735; 83930; 83935; 84100; 84132; 84156; 84295; 84300; 84484; 84550; 85014; 85018; 85025; 85027; 85610; 85730; 86850; 86900; 86901; 86923; 87635; 93005; 97039; A4344; C9803; G0378; J0330; J0690; J1170; J1815; J1885; J2250; J2370; J2405; J2543; J2704; J2710; J2795; J3010; J3411; J3475; J3480; J3490; J7030; J7040; J7050; J7120; P9016; P9045; Q9967

== ENCOUNTER 2022-06-04 10:00 | Observation (INO) | payer MEDICARE ==
[~2022-06-04] VITALS: Ht 177.8 cm; Wt 69.2 kg
[2022-06-04 11:22] LABS: APPEARANCE,URINE CLEAR (CLEAR); BILIRUBIN,URINE NEGATIVE (NEGATIVE); COLOR,URINE YELLOW (YELLOW); GLUCOSE, URINE (UA) NEGATIVE (NEGATIVE); KETONES,URINE NEGATIVE (NEGATIVE); LEUKOCYTE ESTERASE ,URINE NEGATIVE Leu/uL (NEGATIVE); NITRATE,URINE NEGATIVE (NEGATIVE); OCCULT BLOOD,URINE NEGATIVE (NEGATIVE); PH,URINE 5.5 (5.0-8.0); PROTEIN,URINE NEGATIVE (NEGATIVE); UROBILINOGEN,URINE 0.2 mg/dL (0.2-1.0)
[2022-06-04 11:25] LABS: ALBUMIN 3.6 g/dL (3.5-5.0); CREATININE 0.9 mg/dL (0.5-1.5); CRP QUANTITATIVE 2.3 mg/L (0.00-9.0); POTASSIUM 4.6 mmol/L (3.5-5.1)
[2022-06-05 08:50] VITALS: BP 175/84
[2022-06-05] MEDS ORDERED: OLMESARTAN/HCTZ PO (09:25)
[2022-06-05] MEDS ORDERED: PRED5TAB PO (09:25)
[2022-06-05] MEDS ORDERED: VITAMIN C PO (09:29)
[2022-06-05] MEDS ORDERED: FLAXSEED PO (09:29)
[2022-06-05] MEDS ORDERED: GLUCOSAMINE PO ×2 (09:29)
[2022-06-05] MEDS ORDERED: AMLO-258 PO (09:29)
[2022-06-05] MEDS ORDERED: MULT-1367 PO (09:29)
[2022-06-05] MEDS ORDERED: VITAMIN D3 PO (09:29)
[2022-06-05] MEDS ORDERED: OMEGA 3 PO (09:29)
[2022-06-05] MEDS ORDERED: COGNITEX PO (09:30)
[2022-06-06] VITALS (26 sets, daily range): BP systolic 102–163; BP diastolic 58–99
[2022-06-06] MEDS ORDERED: TRANEXAMIC ACID 1000MG/10ML ONE (05:42)
[2022-06-06] MEDS ORDERED: LACTATED RINGERS 1000ML 1,000 ML IV ONE (06:48)
[2022-06-06] MEDS ORDERED: CEFAZOLIN SODIUM 2 GM VIAL ONE (06:48)
[2022-06-06] MEDS ORDERED: PROPOFOL 10 MG/ML 20ML VIAL IV ONE (06:59)
[2022-06-06] MEDS ORDERED: FENTANYL CITRATE PF 50 MCG/1 ML 2ML VIAL ONE (06:59)
[2022-06-06] MEDS ORDERED: ROCURONIUM 10MG/1ML SYR 10 MG/ML ML ONE ×2 (07:00→08:38)
[2022-06-06] MEDS ORDERED: MIDAZOLAM HCL 1 MG/ML 2ML VIAL ONE (07:00)
[2022-06-06] MEDS ORDERED: ONDANSETRON 4MG INJ ONE (07:02)
[2022-06-06] MEDS ORDERED: DEXAMETHASONE SOD PHOSPHATE 10MG/ML 1ML VIAL ONE (07:09)
[2022-06-06] MEDS ORDERED: CEFAZOLIN SODIUM 2 GM VIAL IVPB ONE (07:30)
[2022-06-06] MEDS ORDERED: OLMESARTAN/HCTZ PO (07:33)
[2022-06-06] MEDS ORDERED: EPHEDRINE SULFATE 50 MG/ML AMPULE ONE (07:40)
[2022-06-06] MEDS ORDERED: TRANEXAMIC ACID 1000MG/10ML IV ONE ×2 (07:44→09:16)
[2022-06-06] MEDS ORDERED: NEOSTIGMINE 5MG/5ML SYR IV ONE (09:15)
[2022-06-06] MEDS ORDERED: GLYCOPYRROLATE 1 MG/5 ML SYRINGE ONE (09:15)
[2022-06-06] MEDS ORDERED: KCL 20 MEQ ERTAB PO PRN (09:30)
[2022-06-06] MEDS ORDERED: KETOROLAC 15MG/ML VIAL (15MG/ML) IV PRN (09:30)
[2022-06-06] MEDS ORDERED: TRAMADOL HCL 50 MG TABLET PO PRN (09:30)
[2022-06-06] MEDS ORDERED: CALCIUM CARB 500MG PO PRN (09:30)
[2022-06-06] MEDS ORDERED: CYCLOBENZAPRINE HCL 10 MG TABLET PO PRN (09:30)
[2022-06-06] MEDS ORDERED: POTASSIUM CHLORIDE 20MEQ/100ML 100 ML IV PRN (09:30)
[2022-06-06] MEDS ORDERED: POTASSIUM CHLORIDE 10% ELIXIR 20 MEQ/15 ML UDCUP PO PRN (09:30)
[2022-06-06] MEDS ORDERED: ONDANSETRON 4MG INJ IVP PRN (09:30)
[2022-06-06] MEDS ORDERED: LIDOCAINE HCL-MPF 1% 2ML VIAL IV PRN (09:30)
[2022-06-06] MEDS: 0.9%NACL 1000ML 1,000 ML IV SCH ×2 (09:30→21:27)
[2022-06-06] MEDS ORDERED: FERROUS FUMARATE 324 MG TABLET PO PRN (09:30)
[2022-06-06] MEDS ORDERED: MEPERIDINE-PF 25 MG/ML SYG ONE (09:59)
[2022-06-06] MEDS: KETOROLAC 15MG/ML VIAL (15MG/ML) IV SCH ×2 (11:09→17:15)
[2022-06-06] MEDS: HYDROCODONE/ACETAMINOPHEN 5/325 MG TAB PO PRN (11:40)
[2022-06-06] MEDS: PREDNISONE 5 MG TABLET PO SCH (12:32)
[2022-06-06] MEDS: AMLODIPINE 5 MG TAB PO SCH (12:33)
[2022-06-06] MEDS: CEFAZOLIN SODIUM 1 GM VIAL IVP SCH ×2 (14:23→21:27)
[2022-06-06] MEDS: GABAPENTIN 100 MG CAPSULE PO SCH ×2 (14:26→21:27)
[2022-06-06] MEDS: DOCUSATE SODIUM 100 MG CAP PO SCH (21:26)
[2022-06-07] VITALS: BP 146/64
[2022-06-07] MEDS: KETOROLAC 15MG/ML VIAL (15MG/ML) IV SCH (01:30)
[2022-06-07 03:56] VITALS: BP 129/67
[2022-06-07 05:06] LABS: HEMATOCRIT 27.5 % (42-54); MEAN CORPUSCULAR HEMOGLOBIN 29.3 pg (27.0-33.0); MEAN CORPUSCULAR VOLUME 91.7 fL (79-99); RED CELL DISTRIBUTION WIDTH 15.9 % (11.0-15.5); WHITE BLOOD COUNT (AUTO) 7.7 K/uL (4.8-10.8)
[2022-06-07] MEDS: 0.9%NACL 1000ML 1,000 ML IV SCH (06:10)
[2022-06-07] MEDS: HYDROCODONE/ACETAMINOPHEN 5/325 MG TAB PO PRN (06:11)
[2022-06-07 08:00] VITALS: BP 104/58
[2022-06-07] MEDS: HYDROCHLOROTHIAZIDE PO SCH (09:00)
[2022-06-07] MEDS: OLMESARTAN PO SCH (09:00)
[2022-06-07] MEDS: PREDNISONE 5 MG TABLET PO SCH (10:08)
[2022-06-07] MEDS: DOCUSATE SODIUM 100 MG CAP PO SCH ×2 (10:08→19:28)
[2022-06-07] MEDS: POLYETHYLENE GLYCOL 3350 17 GM POWD.PACK PO SCH (10:08)
[2022-06-07] MEDS: AMLODIPINE 5 MG TAB PO SCH (10:09)
[2022-06-07] MEDS: GABAPENTIN 100 MG CAPSULE PO SCH ×3 (10:09→19:28)
[2022-06-07 12:00] VITALS: BP 147/60
[2022-06-07] MEDS ORDERED: KETOROLAC 15MG/ML VIAL (15MG/ML) IV PRN (13:00)
[2022-06-07 16:00] VITALS: BP 136/56
[2022-06-07 20:00] VITALS: BP 146/65
[2022-06-08] VITALS: BP 139/66
[2022-06-08 07:30] VITALS: BP 152/59
[2022-06-08] MEDS: OLMESARTAN PO SCH (09:00)
[2022-06-08] MEDS: HYDROCHLOROTHIAZIDE PO SCH (09:00)
[2022-06-08] MEDS: POLYETHYLENE GLYCOL 3350 17 GM POWD.PACK PO SCH (09:15)
[2022-06-08] MEDS: PREDNISONE 5 MG TABLET PO SCH (09:15)
[2022-06-08] MEDS: GABAPENTIN 100 MG CAPSULE PO SCH (09:15)
[2022-06-08] MEDS: AMLODIPINE 5 MG TAB PO SCH (09:15)
[2022-06-08] MEDS: DOCUSATE SODIUM 100 MG CAP PO SCH (09:15)
[2022-06-08 11:00] VITALS: BP 141/73
[2022-06-08] MEDS ORDERED: CYCL-309 PO (11:24)
[2022-06-08] MEDS ORDERED: TRAM50TA4 PO (11:24)
[2022-06-08] MEDS ORDERED: ASPI-1012 PO (11:24)
[2022-06-08] MEDS ORDERED: DOCU-116 PO (11:24)
[2022-06-08] MEDS ORDERED: GABA100C PO (11:24)
[2022-06-08] MEDS ORDERED: HYDR-4060 PO (11:24)
[2022-06-09] MEDS ORDERED: BISACODYL 10 MG SUPP.RECT RC PRN (09:30)
== END 2022-06-08 13:20 ==
LOC: EDSTATUS 10:00 → DAHIP 06-06 05:47 → 4DH 06-06 10:26
PROVIDERS: ADMIT Student in an Organized Health Care Education/Training Program; ATTEND Student in an Organized Health Care Education/Training Program
DX: M16.12 Unilateral primary osteoarthritis, left hip (principal); Z20.822 Contact with and (suspected) exposure to COVID-19; M25.552 Pain in left hip; G89.29 Other chronic pain; D62 Acute posthemorrhagic anemia; Z79.899 Other long term (current) drug therapy
CPT/HCPCS: 82040; 80048 ×2; 87088; 84134; 86140; 87426; 81003; 36415 ×2; 93005 ×2; 87641; 27130; 97039 ×5; 96374; 96376; 96375; 73502; 73503; 97161; 85027; 97116 ×3; 97530 ×2; G0378 ×49; J7120 ×2; C1776; A4600; J3010; J0690 ×4; J3490 ×5; J1100; J2710; J2250; J2704; J2405; J2175; J1885 ×2; A4649 ×3; G0168; A6255; A5120; A4215; A4223; A4222; A4221; A4663; J7030; J7512 ×2